=== PATIENT | female | born 2005 | race African-American/Black ===

== ENCOUNTER 2023-09-05 11:38 | Emergency (ER) | payer MEDICAID ==
[~2023-09-05] VITALS: Ht 160 cm; Wt 54.0 kg
[2023-09-05 11:48] VITALS: O2SAT 100
[2023-09-05 12:17] LABS: BASOPHILS % 0.4 % (0.0-2.0); EOSINOPHILS % 0.6 % (0.0-5.0); HEMATOCRIT. 38.2 % (36.0-48.0); HEMOGLOBIN. 12.7 g/dL (12.0-16.0); MEAN CORPUSCULAR HEMOGLOBIN 31.9 pg (28.0-32.0); MEAN CORPUSCULAR HGB CONC 33.3 g/dL (31.0-37.0); MEAN CORPUSCULAR VOLUME 95.8 fL (81.0-99.0); MEAN PLATELET VOLUME 7.9 fl (7.4-10.4); MONOCYTES % 5.8 % (2.0-8.0); NEUTROPHILS % 73.2 % (40.0-76.0); PLATELET 278 x1000/uL (130-400); RED BLOOD CELL COUNT 3.99 mill/uL (4.2-5.4); RED CELL DISTRIBUTION WIDTH 15.1 % (11.6-14.6); WHITE BLOOD COUNT 8.2 x1000/uL (4.5-11.0)
[2023-09-05 12:23] LABS: CHLORIDE 102 mEq/L (98-107); POTASSIUM 3.5 mEq/L (3.5-5.1); SODIUM 133 mEq/L (136-145)
[2023-09-05 12:24] LABS: CALCIUM 9.6 mg/dL (8.7-10.4); CARBON DIOXIDE 23 mEq/L (21-32)
[2023-09-05 12:29] LABS: CREATININE 0.7 mg/dL (0.6-1.0); GLUCOSE 86 mg/dL (70-105); UREA NITROGEN BLOOD 7 mg/dL (9-23)
[2023-09-05 12:31] LABS: CLARITY URINE CLOUDY (CLEAR); COLOR URINE YELLOW (YELLOW); GLUCOSE URINE NEGATIVE (NEGATIVE); KETONES URINE 1+ (NEGATIVE); LEUKOCYTE ESTERASE URINE NEGATIVE (NEGATIVE); NITRITE URINE NEGATIVE (NEGATIVE); OCCULT BLOOD URINE NEGATIVE (NEGATIVE); PROTEIN URINE TRACE (NEGATIVE); SPECIFIC GRAVITY URINE 1.025 (1.005-1.030)
[2023-09-05 12:31] LABS: ALANINE AMINOTRANSFERASE 11 IU/L (10-49); ALBUMIN 4.7 g/dL (3.2-4.8); ASPARTATE AMINOTRANSFERASE 19 IU/L (<34); BILIRUBIN DIRECT 0.1 mg/dL (<=3.0); BILIRUBIN TOTAL 0.4 mg/dL (0.1-1.0); PROTEIN TOTAL 7.8 g/dL (6.0-8.3)
[2023-09-05 12:40] LABS: BACTERIA URINE 2+; SQUAMOUS EPITHELIAL CELL URINE 3+ /lpf (RARE/1+); YEAST URINE NONE SEEN
[2023-09-05] MEDS: SODIUM CHLORIDE 0.9% 1,000 ML IV ONE (12:46)
[2023-09-05] MEDS: METOCLOPRAMIDE HCL 10MG/2ML VIAL IV ONE (12:49)
[2023-09-05 12:56] LABS: B-HCG QUANTITATIVE 164088 mIU/mL (<3)
[2023-09-05] MEDS ORDERED: DOXY1TAB3 MT (15:47)
[2023-09-05] MEDS ORDERED: CEPH500C2 MT (15:47)
[2023-09-05 15:53] VITALS: BP 114/53; PULSE 68; RESP 18; TEMP 98.7
== END 2023-09-05 16:05 | disposition home or self-care (01) ==
LOC: ER 12:54
DX: O23.41 Unspecified infection of urinary tract in pregnancy, first trimester (principal); N39.0 Urinary tract infection, site not specified; Z3A.09 9 weeks gestation of pregnancy
CPT/HCPCS: 80076; 80048; 81003; 81025; 84702; 83690; 85025; 36415; 76801; 76817; 96361; 96374; 99285; J2765; J7030; Z7610 ×2

== ENCOUNTER 2024-01-01 11:19 | Emergency (ER) | payer MEDICAID, OTHER ==
[~2024-01-01] VITALS: Ht 162.6 cm; Wt 51.0 kg
[~2024-01-01 11:19] MED LIST: CEPH500C2 MT; DOXY1TAB3 MT
[2024-01-01 11:26] VITALS: TEMP 98.8; O2SAT 100
[2024-01-01 11:57] LABS: HEMATOCRIT. 36.1 % (36.0-48.0); MEAN CORPUSCULAR HEMOGLOBIN 31.8 pg (28.0-32.0); MEAN CORPUSCULAR HGB CONC 33.1 g/dL (31.0-37.0); PLATELET 300 x1000/uL (130-400); RED BLOOD CELL COUNT 3.76 mill/uL (4.2-5.4); RED CELL DISTRIBUTION WIDTH 15.3 % (11.6-14.6); WHITE BLOOD COUNT 14.1 x1000/uL (4.5-11.0)
[2024-01-01 12:08] LABS: CHLORIDE 106 mEq/L (98-107); POTASSIUM 3.6 mEq/L (3.5-5.1); SODIUM 138 mEq/L (136-145)
[2024-01-01 12:09] LABS: CALCIUM 9.8 mg/dL (8.7-10.4); CARBON DIOXIDE 23 mEq/L (21-32)
[2024-01-01 12:14] LABS: CREATININE 0.8 mg/dL (0.6-1.0); GLUCOSE 75 mg/dL (70-105); UREA NITROGEN BLOOD 11 mg/dL (9-23)
[2024-01-01 12:21] LABS: TROPONIN I HIGH SENSITIVITY < 4 ng/L (3.0-34)
[2024-01-01 12:24] LABS: DIFFERENTIAL COMMENT 1
[2024-01-01 13:30] LABS: HCG SCREEN NEGATIVE
[2024-01-01] MEDS ORDERED: TRAM50TA3 MT (13:53)
[2024-01-01] MEDS ORDERED: TOPUD MT (13:53)
[2024-01-01] MEDS ORDERED: NAPR275T96 MT (13:53)
[2024-01-01] MEDS: PENICILLIN G BENZATHINE 1,200,000 UNITS/2ML SYR IM ONE (14:18)
[2024-01-01 14:23] VITALS: BP 112/64; PULSE 70; RESP 18; O2SAT 99
[2024-01-01 17:20] LABS: ANISOCYTOSIS 1+; PLATELET ESTIMATE NORMAL
== END 2024-01-01 14:24 | disposition home or self-care (01) ==
LOC: ER 11:28
DX: J02.9 Acute pharyngitis, unspecified (principal); J45.909 Unspecified asthma, uncomplicated
CPT/HCPCS: 99283; 80048; 84703; 85025; 84484; 36415; 96372; J0561